=== PATIENT | female | born 1995 ===

== ENCOUNTER → 2017-06-09 | Emergency (ER) | payer OTHER ==
[~2017-06-09] VITALS: Ht 175.3 cm; Wt 79.5 kg
[2017-06-09 18:05] VITALS: BP 142/86; PULSE 84; RESP 16; TEMP 98.4; O2SAT 100
== END | disposition left against medical advice (07) ==
LOC: NED 18:04
DX: Z04.1 Encounter for examination and observation following transport accident (principal); Z53.21 Procedure and treatment not carried out due to patient leaving prior to being seen by health care provider
CPT/HCPCS: 99281